=== PATIENT | male | born 1985 | race Two or more races ===

== ENCOUNTER 2016-06-22 16:57 | Emergency (ER) | payer SELFPAY ==
[~2016-06-22] VITALS: Ht 185.4 cm; Wt 74.8 kg
[2016-06-22] MEDS ORDERED: IV NORMAL SALINE 1000ML BAG 1,000 ML IV SCH (17:11)
[2016-06-22] MEDS ORDERED: ONDANSETRON PF 4 MG/2 ML VIAL. IV ONE (17:15)
[2016-06-22] MEDS ORDERED: MORPHINE SULFATE 4 MG/ML DISP.SYRIN. IV ONE (17:15)
[2016-06-22 17:27] LABS: BASO % 1 % (0-3); EOS % 5 % (0-3); HEMOGLOBIN 13.9 g/dL (13.0-17.5); LYMPH % 40 % (24-48); MEAN CORPUSCULAR HEMOGLOBIN 28 pg (25-35); MEAN CORPUSCULAR HGB CONC 32 g/dL (31-37); MEAN CORPUSCULAR VOLUME 88 fL (79-100); MONO % 6 % (0-9); NEUT % 50 % (31-73); PLATELET COUNT 142 x10^3/uL (140-400); WHITE BLOOD COUNT 7.7 x10^3/uL (4.0-11.0)
[2016-06-22 17:29] LABS: BILIRUBIN,URINE NEGATIVE (NEG); GLUCOSE,URINE NEGATIVE (NEG); NITRITE,URINE NEGATIVE (NEG); PROTEIN,URINE NEGATIVE (NEG-TRACE); UROBILINOGEN,URINE 0.2 mg/dL (0.2 mg/dL)
[2016-06-22 17:35] LABS: CALCIUM 8.8 mg/dL (8.5-10.1); GFR 87.7; POTASSIUM 3.5 mmol/L (3.5-5.1)
[2016-06-22 17:39] LABS: BACTERIA,URINE 0 /HPF (0-FEW); RBC,URINE TNTC /HPF (0-2); WBC,URINE 0 /HPF (0-4)
--- NOTE | 2016-06-22 17:46 | PHYS DOC ---
Past Medical History Past Medical History: Kidney Stone Past Surgical History: No Surgical History Alcohol Use: None Drug Use: None Adult General Chief Complaint Chief Complaint: FLANK PAIN HPI HPI Patient is a 31 year old female who presents with left flank/left lower quadrant pain. Patient states symptoms started acutely just under 1 hour prior to arrival. He describes a "squeezing" pain that radiates from his L flank to his LLQ. Had some nausea initially but this has resolved. No urinary symptoms. Patient reports symptoms similar to prior kidney stones; last stone ~1 year ago. He did not take anything for pain prior to coming to ED. Review of Systems Review of Systems Constitutional: Denies fever or chills Eyes: Denies change in visual acuity or eye pain HENT: Denies nasal congestion or sore throat Respiratory: Denies cough or shortness of breath Cardiovascular: Denies chest pain GI: LLQ pain, nausea (now resolved). Denies vomiting, bloody stools or diarrhea : Denies dysuria or hematuria Musculoskeletal: L flank pain Integument: Denies rash or skin lesions Neurologic: Denies headache, focal weakness or sensory changes Current Medications Current Medications Current Medications Medications (Trade) Dose Ordered Sig/Madie Start Time Stop Time Status Last Admin Dose Admin Morphine Sulfate 4 mg 1X ONCE 06/22/16 17:15 06/22/16 17:16 DC 06/22/16 17:22 4 MG Ondansetron HCl (Zofran) 4 mg 1X ONCE 06/22/16 17:15 06/22/16 17:16 DC 06/22/16 17:21 4 MG Sodium Chloride (Iv Sodium Chloride 0.9% 1000ml Bag) 1,000 ml @ 1,000 mls/hr Q1H 06/22/16 17:11 06/22/16 18:10 DC 06/22/16 17:20 1,000 MLS/HR Allergies Allergies Allergies Coded Allergies Type Severity Reaction Last Updated Verified No Known Drug Allergies 06/22/16 No Physical Exam Physical Exam Constitutional: Well developed, well nourished, no acute distress, non-toxic appearance HENT: Normocephalic, atraumatic, bilateral external ears normal Eyes: EOMI, conjunctiva normal, no discharge Neck: Normal range of motion, no stridor Cardiovascular: Heart rate normal, regular rhythm, no murmur Lungs & Thorax: Bilateral breath sounds clear to auscultation Abdomen: Bowel sounds normal, soft, non-distended, LLQ TTP without guarding or rebound Skin: Warm, dry, no erythema, no rash Back: L CVA tenderness Extremities: No obvious deformity, no edema Neurologic: Alert and oriented X 3, no gross deficits noted Current Patient Data Vital Signs Vital Signs Date Time Temp Pulse Resp B/P Pulse Ox O2 Delivery O2 Flow Rate FiO2 06/22/16 18:55 88 18 121/79 99 Room Air 06/22/16 17:05 97.7 97.7 Lab Values Laboratory Tests Test 06/22/16 17:15 White Blood Count 7.7x10^3/uL (4.0-11.0) Red Blood Count 4.90x10^6/uL (4.30-5.70) Hemoglobin 13.9g/dL (13.0-17.5) Hematocrit 43.0% (39.0-53.0) Mean Corpuscular Volume 88fL (79-100) Mean Corpuscular Hemoglobin 28pg (25-35) Mean Corpuscular Hemoglobin Concent 32g/dL (31-37) Red Cell Distribution Width 14.0% (11.5-14.5) Platelet Count 142x10^3/uL (140-400) Neutrophils (%) (Auto) 50% (31-73) Lymphocytes (%) (Auto) 40% (24-48) Monocytes (%) (Auto) 6% (0-9) Eosinophils (%) (Auto) 5% (0-3) H Basophils (%) (Auto) 1% (0-3) Neutrophils # (Auto) 3.8x10^3uL (1.8-7.7) Lymphocytes # (Auto) 3.0x10^3/uL (1.0-4.8) Monocytes # (Auto) 0.4x10^3/uL (0.0-1.1) Eosinophils # (Auto) 0.4x10^3/uL (0.0-0.7) Basophils # (Auto) 0.0x10^3/uL (0.0-0.2) Urine Collection Type Unknown Urine Color Yellow Urine Clarity Clear Urine pH 6.0 Urine Specific [place] 1.020 Urine Protein Negativemg/dL (NEG-TRACE) Urine Glucose (UA) Negativemg/dL (NEG) Urine Ketones (Stick) Negativemg/dL (NEG) Urine Blood Large (NEG) Urine Nitrite Negative (NEG) Urine Bilirubin Negative (NEG) Urine Urobilinogen Dipstick 0.2mg/dL (0.2 mg/dL) Urine Leukocyte Esterase Negative (NEG) Urine RBC Tntc/HPF (0-2) Urine WBC 0/HPF (0-4) Urine Bacteria 0/HPF (0-FEW) Urine Mucus Marked/LPF Sodium Level 144mmol/L (136-145) Potassium Level 3.5mmol/L (3.5-5.1) Chloride Level 108mmol/L (98-107) H Carbon Dioxide Level 27mmol/L (21-32) Anion Gap 9 (6-14) Blood Urea Nitrogen 12mg/dL (8-26) Creatinine 1.0mg/dL (0.7-1.3) Estimated GFR (Cockcroft-Gault) 87.7 Glucose Level 96mg/dL (70-99) Calcium Level 8.8mg/dL (8.5-10.1) Laboratory Tests 06/22/16 17:15 Laboratory Tests 06/22/16 17:15 EKG EKG [] Radiology/Procedures Radiology/Procedures CT A/P: IMPRESSION 1. Bilateral nonobstructing renal calculi. 2. There is a 3 millimeter calculus at the right ureterovesicular junction. There is no right hydronephrosis. 3. There is no left obstructive uropathy. 4. Small pericardial effusion. 5. Prostate size upper limits of normal. Course & Med Decision Making Course & Med Decision Making Pertinent Labs and Imaging studies reviewed. (See chart for details) Patient is 31-year-old male who presents with flank pain. Likely kidney stone. As he has not had a CT scan for a few years, we will obtain one to evaluate for location and size of stone. Labs ordered. IV fluids, pain medication, nausea medication ordered for symptom relief. Labs largely unremarkable except for hematuria. No leukocytosis, renal function is okay. CT results as above. Interestingly, patient has right-sided stone at UVJ but no ureteral stone on the left (passed prior to CT scan?). Discussed results with patient, who is not having any pain at this time. Will plan discharge home with prescription for pain and nausea medications if he has recurrence of symptoms, instructions for follow-up with urology, return precautions. Dragon Disclaimer Dragon Disclaimer This electronic medical record was generated, in whole or in part, using a voice recognition dictation system. Departure Departure Impression: Primary Impression: Ureteral stone Disposition: HOME, SELF-CARE Condition: IMPROVED Referrals: KARON CHAPMAN DO Patient Instructions: Diet for Kidney Stones, Kidney Stones Additional Instructions: Thank you for allowing us to provide care today in the Emergency Department. Take the provided medication as directed. Use caution when taking the pain medication as it can make you drowsy. Schedule a follow up appointment with a urologist using the provided contact information. Return promptly to the Emergency Department if you develop any new or concerning symptoms. Scripts Ondansetron (Zofran Odt)4 Mg Tab.rapdis1 Tab SL Q8HRS PRN NAUSEA #10 TAB Prov:GIDEON SHETH MD 06/22/16 Hydrocodone/Apap 5-325 ([place] 5-325 Tablet)1 Each Tablet1 Tab PO PRN Q6HRS PRN PAIN #15 TAB Prov:GIDEON SHETH MD 06/22/16 GIDEON SHETH MD Jun 22, 2016 17:46
--- NOTE | 2016-06-22 17:47 | RAD ---
PROCEDURE CT abdomen pelvis without contrast. HISTORY Left flank pain x1 hour. History of stones. TECHNIQUE Helical CT imaging of the abdomen pelvis is performed without IV or oral contrast using renal stone protocol. PQRS: One or more the following individualized dose reduction techniques were utilized for the study: 1. Automated exposure control. 2. Adjustment of the mA and/or kV according to patient size. 3. Use of iterative reconstruction technique. COMPARISON None. FINDINGS Evaluation of solid organs and bowel is limited without oral and IV contrast, decreasing sensitivity for detection of pathology. This is standard for renal stone protocol. Lungs are clear. Cardiac size normal, small pericardial effusion. Liver, spleen, gallbladder, pancreas, and right adrenal gland are normal. Nodularity of the left adrenal gland, no discrete nodule is seen. The abdominal aorta is normal caliber. There are at least 2 punctate nonobstructing right renal calculi. There is a 5 millimeter calculus in the interpolar left kidney. There is no perinephric stranding or hydronephrosis. There is no left ureteral calculus. Bladder is not well distended accentuating the wall thickness. There is a 3 millimeter calculus at the right ureterovesicular junction, image 175. Stomach unremarkable. No dilated small bowel. Scattered stool in the colon. No definite colon wall thickening. Portions are not well distended. Appendix diameter is prominent but there is air in the lumen and there is no surrounding inflammation. There are scattered mesenteric lymph nodes. There is no adenopathy. The prostate is upper limits of normal in size. There are coarse calcifications centrally. No pelvic free fluid is seen. IMPRESSION 1. Bilateral nonobstructing renal calculi. 2. There is a 3 millimeter calculus at the right ureterovesicular junction. There is no right hydronephrosis. 3. There is no left obstructive uropathy. 4. Small pericardial effusion. 5. Prostate size upper limits of normal. Electronically signed by: aHo Valenzuela MD (Jun 22, 2016 17:45:41)
[2016-06-22] MEDS ORDERED: HYDR-971 PO (18:42)
[2016-06-22] MEDS ORDERED: ONDA4TAB10 SL (18:42)
[2016-06-22 18:55] VITALS: BP 121/79
== END 2016-06-22 18:57 | disposition home or self-care (01) ==
LOC: ER 16:57
DX: N20.1 Calculus of ureter (principal); N13.9 Obstructive and reflux uropathy, unspecified; Z87.442 Personal history of urinary calculi
CPT/HCPCS: 36415; 74176; 80048; 81001; 85027; 96361; 96374; 96375; 99285; J2270; J2405; J7030